=== PATIENT | male | born 1950 | race Caucasian/White ===

== ENCOUNTER → 2017-03-28 | Outpatient (CLI) | payer MEDICARE, BC ==
[~2017-03-28] MED LIST: AMLO-145 PO; ASPI-781 PO; BEN50 PO; FINA5TAB4 PO; HYDR-3720 PO; LISI10TA2 PO; OMEP40CA6 PO; PRED20TA PO; TERA10CA42 PO; TRAM50TA2 PO
--- NOTE | 2017-03-28 11:05 | RADRPT ---
PROCEDURE: XR Pelvis and bilateral hips. CLINICAL INDICATION: Pain TECHNIQUE: Single AP view of the pelvis, with AP and lateral views of both hips were performed. COMPARISON: February 07, 2016, December 08, 2015, November 06, 2015, August 07, 2015, June 16, 2015 FINDINGS: There are no fractures or dislocations. There is a stable, right total hip arthroplasty. There are no findings of hardware failure or resorption. There is severe osteoarthritis of the left hip joint that is stable. Bilaterally the sacroiliac, hip and pubis symphysis joints are intact. IMPRESSION: Right total hip arthroplasty. No findings of hardware failure or resorption. Severe osteoarthritis of the left hip joint. Overall, no interval change. RPTAT: EE .Ayaka Walker MD, Date Time Electronically viewed and signed by .Ayaka Walker MD, on 03/28/2017 11:05 .F/
== END | disposition home or self-care (01) ==
LOC: HKI 09:54
PROVIDERS: ATTEND Orthopaedic Surgery
DX: M16.12 Unilateral primary osteoarthritis, left hip (principal); Z09 Encounter for follow-up examination after completed treatment for conditions other than malignant neoplasm; Z96.642 Presence of left artificial hip joint
CPT/HCPCS: 73502; G0463